=== PATIENT | female | born 1970 | race Caucasian/White ===

== ENCOUNTER 2022-04-10 14:05 | Emergency (ER) | payer BC ==
[~2022-04-10] VITALS: Ht 154.9 cm; Wt 83.0 kg
--- NOTE | 2022-04-12 07:10 | EKG ---
[facility] [address] [facility] [place] [address] Signed Sinus bradycardia with premature atrial complexes with aberrant conduction Right bundle branch block T wave abnormality, consider inferior ischemia Abnormal ECG No previous ECGs available Confirmed by SD JACKSON MD ([id number]) on 04/12/2022 7:10:21 AM Electronically Signed By: SD JACKSON MD 04/12/22 0710 PATIENT NAME: YOLANDE ZIEGLER Electrocardiogram DATE OF : 74 PHYSICIAN: SD JACKSON MD REPORT #: [id number] REPORT IS CONFIDENTIAL AND NOT TO BE RELEASED WITHOUT AUTHORIZATION
--- NOTE | 2022-04-12 07:10 | EKG ---
[facility] [address] [place] [address] Signed Sinus rhythm with complete heart block and Junctional bradycardia Rightward axis Abnormal ECG When compared with ECG of 10-APR-2022 15:50, (Unconfirmed) Junctional rhythm has replaced Sinus rhythm Confirmed by SD JACKSON MD ([id number]) on 04/12/2022 7:10:38 AM Electronically Signed By: SD JACKSON MD 04/12/22 0710 PATIENT NAME: YOLANDE ZIEGLER Electrocardiogram DATE OF : 74 PHYSICIAN: SD JACKSON MD REPORT #: [id number] REPORT IS CONFIDENTIAL AND NOT TO BE RELEASED WITHOUT AUTHORIZATION
== END 2022-04-10 20:19 | disposition short-term general hospital (02) ==
LOC: ED 14:05
DX: I44.2 Atrioventricular block, complete (principal); Z20.822 Contact with and (suspected) exposure to COVID-19; Z88.0 Allergy status to penicillin; Z88.2 Allergy status to sulfonamides
CPT/HCPCS: 36415; 71045; 80053; 83735; 84484; 85025; 87502; 93005; 93010; 99285-25; A9270; U0003

== ENCOUNTER 2024-08-27 19:20 | Emergency (ER) | payer OTHER ==
[~2024-08-27] VITALS: Ht 154.9 cm; Wt 89.8 kg
[2024-08-27] MEDS ORDERED: ondansetron HCL 4 MG/2 ML VIAL IV ONE (19:30)
[2024-08-27] MEDS ORDERED: HYDROmorphone HCL 1 MG/ML SYR IV PRN (19:30)
[2024-08-27] MEDS ORDERED: PERCOCET 5-3251 EACH PO (21:44)
[2024-08-27] MEDS ORDERED: OXYCODONE/ACETAMINOPHEN 1 TAB HOME.PACK PO ONE (21:45)
[2024-08-27] MEDS ORDERED: DIPHTH,PERTUSS(ACELL),TET VAC 0.5 ML SYRINGE IM ONE (21:45)
[2024-08-27] MEDS ORDERED: ONDANSETRON 4 MG HOME.PACK SL ONE (22:00)
[2024-08-27 22:50] VITALS: BP 119/81
== END 2024-08-27 22:50 | disposition home or self-care (01) ==
LOC: ED 19:20
DX: S52.272A Monteggia's fracture of left ulna, initial encounter for closed fracture (principal); Z88.2 Allergy status to sulfonamides; Z88.0 Allergy status to penicillin; Z23 Encounter for immunization; V00.218A Other ice-skates accident, initial encounter
CPT/HCPCS: 64417; 73060; 73070; 73080; 73090; 90471; 90715; 96374; 96375; 99283-25; A9270; J1171; J2405

== ENCOUNTER 2024-09-04 07:35 | Day surgery (SDC) | payer OTHER ==
[~2024-09-04] VITALS: Ht 154.9 cm; Wt 89.0 kg
[~2024-09-04 07:35] MED LIST: CEFAZOLIN SODIUM 2 GM/20 ML SYR IV SCH; DEXAMETHASONE SOD PHOS 4 MG/ML VIAL ONE; FAMOTIDINE 20 MG/ 2 ML VIAL ONE; IBLOOD GLUCOSE TEST STRIP 1 EA TEST VI PRN; KETOROLAC TROMETHAMINE 30 MG/ML VIAL ONE; LACTATED RINGER'S 1,000 ML IV ONE; LACTATED RINGER'S 1,000 ML IV SCH; LIDOCAINE HCL 1% 5 ML SDV INJ ONE; METOCLOPRAMIDE HCL 10 MG/2 ML SDV ONE; MIDAZOLAM HCL 2 MG/2 ML VIAL ONE; PERCOCET 5-3251 EACH PO; fentaNYL citrate 100 MCG/2 ML VIAL ONE; ondansetron HCL 4 MG/2 ML VIAL ONE; propofoL 200 MG/20 ML VIAL ONE
[2024-09-04] MEDS ORDERED: LIDOCAINE HCL 2% 20 MG/ML VIAL INJ ONE (07:57)
[2024-09-04] MEDS ORDERED: Ropivacaine HCl 0.5% 30 ML VIAL ONE (07:57)
[2024-09-04] MEDS ORDERED: DEXAMETHASONE SOD PHOS 4 MG/ML VIAL ONE (07:57)
[2024-09-04] MEDS ORDERED: propofoL 200 MG/20 ML VIAL ONE ×2 (07:57→09:47)
[2024-09-04 08:01] VITALS: BP 145/82
[2024-09-04] MEDS ORDERED: DAILY VALUE1 EACH PO (08:05)
[2024-09-04] MEDS ORDERED: CLARITIN10 MG PO (08:05)
[2024-09-04] MEDS ORDERED: SEVOFLURANE 250 ML BTL ONE (08:29)
[2024-09-04] MEDS ORDERED: KETOROLAC TROMETHAMINE 15 MG/ML VIAL IV PRN (08:30)
[2024-09-04] MEDS ORDERED: OXYCODONE HCL 5 MG TAB PO PRN (08:30)
[2024-09-04] MEDS ORDERED: DICLOFENAC SOD 75 MG TABEC PO SCH (09:00)
[2024-09-04] MEDS ORDERED: SENNOSIDES 1 TAB PO SCH (09:00)
[2024-09-04] MEDS ORDERED: MORPHINE SULFATE 10 MG/ML VIAL IV PRN (09:30)
[2024-09-04] MEDS ORDERED: METOCLOPRAMIDE HCL 10 MG/2 ML SDV IV PRN (09:30)
[2024-09-04] MEDS ORDERED: ondansetron HCL 4 MG/2 ML VIAL IV PRN (09:30)
[2024-09-04] MEDS ORDERED: PROCHLORPERAZINE EDISYLATE 10 MG/2 ML VIAL IV PRN (09:30)
[2024-09-04] MEDS ORDERED: NALOXONE HCL 0.4 MG SYR IV PRN (09:30)
[2024-09-04] MEDS ORDERED: IBLOOD GLUCOSE TEST STRIP 1 EA TEST VI PRN (09:30)
[2024-09-04] MEDS ORDERED: droPERidol 5 MG/2 ML VIAL IV PRN (09:30)
[2024-09-04] MEDS ORDERED: fentaNYL citrate 50 MCG/ML SDV IV PRN (09:30)
[2024-09-04] MEDS ORDERED: TRANEXAMIC ACID 1,000 MG/10 ML AMP ONE (10:10)
[2024-09-04] MEDS ORDERED: OXYCODONE HCL5 MG PO (10:31)
[2024-09-04] MEDS ORDERED: DICLOFENAC SODI75 MG PO (10:31)
--- NOTE | 2024-09-04 10:41 | NUR ---
09/04/24 1041 Tracie Ott PATIENT IS AWAKE UPON ARRIVAL TO PACU. SHE IS REPORTING PAIN IN HER THROAT. SHE IS REQUESTING HER HOB TO BE SAT UP BY MOTIONING WITH HER HANDS. THIS IS DONE. PATIENT IS RESTING QUIETLY, WITH HER EYES CLOSED ONCE THE HOB IS ELEVATED TO NEAR 90 DEGREES.
[2024-09-04 11:05] VITALS: BP 135/86
--- NOTE | 2024-09-04 11:12 | NUR ---
PT BACK TO ROOM FROM PACU ON RA. RECEIVED REPORT FROM MARGIE MURRAY . PT LEFT ARM IN SLING WITH ICE PACK IN PLACE. PT DRINKING WATER AND EATING PUDDING. NO OTHER NEEDS AT THIS TIME. CALL LIGHT WITHIN REACH.
[2024-09-04 11:57] VITALS: BP 111/78
--- NOTE | 2024-09-04 12:35 | NUR ---
1155-INTO PTS ROOM FOR ROUTINE REASSESSMENT. VS TAKEN. IV SITE ASSESSED. SURGICAL SITE OBSERVED. PTS DRSGS/SPLINT APPEAR CDI WITH ARM SECURE IN SLING AND ICE TO INCISION SITE. PT WITH LUE ELEVATED ALSO. PT CONT TO REPORT NUMBNESS IN LUE. PT IS ABLE TO WIGGLE FINGERS ON LEFT HAND SOME. CAP REFILL NOTED TO BE 2-3 SECS. FINGERS ARE WARM TO TOUCH AND PINK IN COLOR. PT CONT TO DENY PAIN IN LUE WELL NAUSEA. PT REMAINS AAOX3 AND ABLE TO MAKE HER NEEDS KNOWN. PT WAS ASKED IF SHE FELT LIKE SHE COULD VOID YET AND SHE RESPONDED THAT SHE THINKS SHE CAN. ASSISTED PT IN SITTING ON EOB. PT THEN STOOD AND WAS ABLE TO AMBULATE ACROSS [place]ES TO RESTROOM WITH RN SUPERVISION. 1205-PT ABLE TO VOID APPROX 400 ML OF CLR, PALE, YELLOW URINE. 1210-PT BACK TO ROOM AND SITTING ON EOB. SURGICAL SITE OBSERVED POST-AMBULATION AND DRSG REMAINS CDI. PT CONT TO DENY PAIN WHEN ASKED. PT EATING AND DRINKING WITHOUT ISSUES AND IS W/O NAUSEA. PT HAS MET CRITERIA FOR DISCHARGE. PT WITH CALL LIGHT AND PERSONAL BELONINGS WITHIN REACH AND IS DRESSING FOR DISCHARGE HOME. 1220-PTS FATHER ARRIVED AND IS HER RIDE HOME. PTS FATHER AND ANOTHER FAMILY MEMBER IN ROOM AT PTS BEDSIDE. CALL LIGHT WITHIN PTS REACH. BED IN LOW POSITION, WHEELS LOCKED. ALL QUESTIONS ANSWERED. ICE PACK REFILLED WITH FRESH ICE. 1225-INTO PTS ROOM FOR DC EDUCATION. POST-OP F/U APPT FOR 09/14/24 AT [address] PT ALSO [address] WHYTE AFTER HOURS PHONE NUMBER. DISCUSSED WOUND CARE, SAFETY AND COLD THERAPY, ELEVATION OF LUE, ACTIVITY RESTICTIONS, AND RX'S WITH PT. PT VERBALIZED UNDERSTANDING. ALL QUESTIONS ANSWERED. 1235-PTS FATHER LEFT TO PULL CAR AROUND TO FRONT OF THE HOSPITAL. IV REMOVED, TIP OBSERVED TO BE INTACT. PRESSURE DRSG APPLIED WITH GAUZE AND COBAN.
--- NOTE | 2024-09-04 12:40 | NUR ---
PT DISCHARGED FROM DS VIA WC TO PASSENGER SIDE OF HER FATHERS VEHICLE. ALL PERSONAL BELONGINGS TAKEN WITH PT.
--- NOTE | 2024-09-05 11:39 | OR ---
[facility] [address] [place], [place] [address] Signed DATE OF OPERATION: 09/04/2024 SURGEON: Jorge Hawkins MD PREOPERATIVE DIAGNOSIS: Monteggia fracture dislocation, left elbow. POSTOPERATIVE DIAGNOSIS: Monteggia fracture dislocation, left elbow. PROCEDURE PERFORMED: Open reduction and internal fixation of left proximal ulna. INTERNET SALES MANAGER: Lucina Krishnamurthy PA-C. Lucina was present and critical for all portions of procedure. ANESTHESIA: General. BLOOD LOSS: None. TOURNIQUET TIME: 68 minutes. IMPLANTS: A seven hole LCDC plate with seven screws. BRIEF HISTORY: Yolande is a 54-year-old female with a history of a ground level fall with a Monteggia fracture dislocation. This was reduced successfully in the ER and she was splinted. Risks, benefits, alternatives of fixation of the ulna were discussed with her and she elected to proceed. DESCRIPTION OF PROCEDURE: Once consent was obtained she was taken to the operating room. After adequate anesthesia she was placed on operating room table. All downside pressure points were well padded. A hand table was brought in and the arm was placed in proximal arm tourniquet. The arm was then exsanguinated using Esmarch bandage. Tourniquet inflated Electronically Signed By: JORGE HAWKINS MD 09/05/24 1139 PATIENT NAME: YOLANDE GARCIA OPERATIVE REPORT DATE OF : 74 REPORT #: [id number] PHYSICIAN: JORGE HAWKINS MD PCP: YUNG DOUGHERTY DO REPORT IS CONFIDENTIAL AND NOT TO BE RELEASED WITHOUT AUTHORIZATION [facility] [address] [place], [place] [address] Signed to 200 mmHg. The fracture was located using image intensifier and a 3 inch to 3.5 inch incision was made overlying the subcutaneous border of the fracture, although this was impossible to feel due to body habitus and swelling. Blunt dissection was taken down to the fascia, which was opened longitudinally. The muscle was elevated off the ulna and the fracture was distracted and cleared of soft tissue. The fracture was significantly unstable. The fracture was reduced and held with a clamp. The LCDC plate was then placed over the fracture and clamped into position. Once this was completed, two screws were placed in the plate to hold it. We elected to go ahead and remove these, I removed the plate proximal and re-reduced the fracture and clamped it again. Again, three screws were placed in the fracture. The radiograph showed an adequate reduction and alignment. Remainder of the screw holes were drilled and appropriate length screws were placed. The final radiograph showed good reduction screw lengths and fracture alignment. The wound was cleaned with normal saline. The fascia was closed using 2-0 Stratafix as was the subcutaneous tissue. Skin was stapled and dressed with Allevyn and posterior splint with the hand in supination. The patient tolerated the procedure well. All sponge, needle, and instrument counts correct. Jorge Hawkins MD BA/KISHAL /[id number] Copies: ~ Electronically Signed By: JORGE HAWKINS MD 09/05/24 1139 PATIENT NAME: YOLANDE GARCIA CASEY OPERATIVE REPORT DATE OF : 74 REPORT #: [id number] PHYSICIAN: JORGE HAWKINS MD PCP: YUNG DOUGHERTY DO REPORT IS CONFIDENTIAL AND NOT TO BE RELEASED WITHOUT AUTHORIZATION
== END 2024-09-04 12:40 | disposition home or self-care (01) ==
LOC: DS 07:35
PROVIDERS: ATTEND Specialist
PROC: 0PSL04Z Reposition Left Ulna with Internal Fixation Device, Open Approach (ICD-10-PCS; principal; 2024-09-04 09:15)
DX: S52.272A Monteggia's fracture of left ulna, initial encounter for closed fracture (principal); W19.XXXA Unspecified fall, initial encounter; G89.18 Other acute postprocedural pain
CPT/HCPCS: 01740; 64415; 73080; 76942; C1713; J0690; J1100; J1885; J2250; J2405; J2704; J2765; J2795; J3010; J7121